=== PATIENT | male | born 1980 | race Hispanic/Latino ===

== ENCOUNTER 2021-04-18 22:57 | Observation (INO) | payer BC ==
[2021-04-18 23:45] LABS: Bacteria/HPF None Seen HPF (None Seen); Bilirubin Negative (Negative); Blood, Urine 3+ (Negative); Clarity Clear (Clear); Glucose, Urine (Dipstick) Normal (Negative); Ketone, Urine Negative (Negative); Leukocyte Negative Leu/uL (Negative); Mucous/LPF 2+ LPF (<2+); Nitrite Negative (Negative); Protein, Urine (Dipstick) 30 mg/dL (Neg-Trace); RBC/HPF Greater than 50 HPF (0-3); Specific Gravity, Urine 1.037 (1.002-1.036); Squamous Epithelial 0-3 HPF (0-3); Urobilinogen Normal mg/dL (Less than 2); pH, Urine 6.5 (5.0-9.0)
[2021-04-19 00:55] LABS: #Eosinphils 0.1 thou/uL (0.0-0.7); #Lymphocytes 1.9 thou/uL (1.20-3.40); #Neutrophils 6.6 thou/uL (1.40-6.50); %Basophils 0.2 % (0.0-1.0); %Eosinophils 0.9 % (0.0-10.0); %Lymphocytes 19.8 % (21.0-51.0); %Neutrophils 69.1 % (42.0-75.0); Hemoglobin 15.8 g/dL (14.0-18.0); Mean Corpuscular HGB CONC 35.3 g/dL (32.0-36.0); Mean Corpuscular Hemoglobin 32.5 pg (27.0-31.0); Mean Platelet Volume 8.1 fL (7.4-10.4); Platelet Count 157 thou/uL (130-400); RBC Distribution Width 11.5 % (11.5-14.5); Red Blood Cell (RBC) Count 4.87 mill/uL (4.70-6.10); White Blood Cell (WBC) Count 9.5 thou/uL (4.8-10.8)
[2021-04-19 01:15] LABS: Anion Gap 12 mmol/L (10-20); BUN (Urea Nitrogen) 9 mg/dL (8.9-20.6); Calc. Creatinine Clearance 0 mL/min (70-130); Carbon Dioxide 25 mmol/L (22-29); Chloride 101 mmol/L (98-107); Glucose 204 mg/dL (70-105); Potassium 3.9 mmol/L (3.5-5.1); Sodium 134 mmol/L (136-145)
[2021-04-19] MEDS ORDERED: Ketorolac Tromethamine 30 MG/ML VIAL ONE (01:15)
[2021-04-19 05:37] LABS: Phosphorus 3.8 mg/dL (2.3-4.7)
[2021-04-19] MEDS ORDERED: Ketorolac Tromethamine 30 MG/ML VIAL IVP PRN (07:19)
[2021-04-19] MEDS ORDERED: Ondansetron ODT 4 MG TAB PO PRN (07:19)
[2021-04-19] MEDS ORDERED: Acetaminophen 325 MG TAB PO PRN (07:19)
[2021-04-19] MEDS: Lactated Ringer's 1,000 ML IV SCH ×2 (07:57→14:59)
[2021-04-19 08:09] LABS: Hemoglobin A1c 8.8 % (4.0-6.0)
[2021-04-19] MEDS ORDERED: Tamsulosin HCl 0.4 MG CAP PO SCH (09:45)
[2021-04-19 12:21] VITALS: BMI 38.2
[2021-04-19 13:12] LABS: SARS-CoV-2 PCR by NAA Not Detected (NotDetected)
[2021-04-19 15:25] VITALS: TEMP 98
[2021-04-19 16:16] VITALS: BP 132/82
[2021-04-20] MEDS ORDERED: Tamsulosin HCl 0.4 MG CAP PO SCH (09:00)
== END 2021-04-19 16:17 | disposition home or self-care (01) ==
LOC: ERS 22:57 → ERHOLD 04-19 02:11 → T4-A 04-19 12:10
PROVIDERS: ADMIT Emergency Medicine; ATTEND Emergency Medicine
DX: N13.2 Hydronephrosis with renal and ureteral calculous obstruction (principal); R03.0 Elevated blood-pressure reading, without diagnosis of hypertension; E11.65 Type 2 diabetes mellitus with hyperglycemia; K76.0 Fatty (change of) liver, not elsewhere classified; F10.20 Alcohol dependence, uncomplicated; Z20.822 Contact with and (suspected) exposure to COVID-19
CPT/HCPCS: 36415; 74176; 80048; 81003; 81015; 83036; 83735; 84100; 85025; 87086; 96374; 96375; G0378; J1885; J3411; U0003; U0005